=== PATIENT | female | born 1965 ===

== ENCOUNTER → 2021-01-18 | Day surgery (SDC) | payer OTHER ==
[~2021-01-18] VITALS: Ht 172.7 cm; Wt 65.8 kg
[~2021-01-18] MED LIST: ASPIRIN EC81 MG PO; ATIVAN1 MG PO; COREG 3.125M3.125 MG PO; EFFEXOR-XR 75 M75 MG PO; NORCO 5-325 TA1 EACH PO; SOMA350 MG PO; VITAMIN C1000 MG PO; ZYRTEC10 M3 PO
[2021-01-18 08:56] LABS: HCG (URINE) SCREEN NEGATIVE (NEGATIVE)
== END | disposition home or self-care (01) ==
LOC: FAS 08:38
PROVIDERS: Anesthesiology
DX: M24.612 Ankylosis, left shoulder (principal); M75.02 Adhesive capsulitis of left shoulder; F17.210 Nicotine dependence, cigarettes, uncomplicated; Z98.1 Arthrodesis status; Z88.2 Allergy status to sulfonamides; Z88.5 Allergy status to narcotic agent; Z88.8 Allergy status to other drugs, medicaments and biological substances
CPT/HCPCS: 84703; 97161; 97530-GP; J2250; J2405; J2704; J2795; J3010; J7120